=== PATIENT | male | born 1990 | race African-American/Black ===

== ENCOUNTER 2025-03-19 16:24 | Outpatient (CLI) | payer MEDICAID, SELFPAY | END 2025-03-19 16:25 | disposition home or self-care (01) | PROVIDERS: PCP Family Medicine; Visit Provider Family Medicine | DX: Z00.00 Encounter for general adult medical examination without abnormal findings (principal); R68.82 Decreased libido; H53.8 Other visual disturbances; Z13.6 Encounter for screening for cardiovascular disorders; Z13.1 Encounter for screening for diabetes mellitus; Z11.59 Encounter for screening for other viral diseases | CPT/HCPCS: 80053; 82465; 83036; 84403; 84443; 86803 ==